=== PATIENT | female | born 1965 ===

== ENCOUNTER 2018-08-14 18:57 | Emergency (ER) | payer MEDICAID ==
[2018-08-14 18:58] VITALS: BMI 21.9
[2018-08-14 19:29] VITALS: RESP 18; TEMP 97.9
--- NOTE | 2018-08-14 20:38 | ED PDOC ---
Arrival/HPI - General Chief Complaint: Altered Mental Status Time Seen by Provider: 08/14/18 19:15 Historian: Patient - History of Present Illness Narrative History of Present Illness (Text): 08/14/18 20:36 53 year old female, with past medical history of chronic back pain, presents to the emergency department brought in by EMS after she was found alledgely wandering outside prior to arrival.States she was going to her pharmacy but lost her way. Patient informs she was coming from her psychiatrist's office tonight and states she currently feels fine. Patient states "I feel fine and nothing is wrong with me.She doesn't understand why she was brought to the ER but came willingly. Patient denies experiencing any alcohol abuse, suicidal ideation, homicidal ideation, fevers, chills, headache, dizziness, chest pain, shortness of breath, abdominal pain, nausea, vomiting, diarrhea, back pain, neck pain, urinary symptoms, or any other complaints. Time/Duration: Prior to Arrival Symptom Onset: Sudden Symptom Course: Unchanged Activities at Onset: Light Context: Walking Past Medical History - Provider Review Nursing Documentation Reviewed: Yes - Past History Past History: No Previous - Infectious Disease Hx of Infectious Diseases: None - Tetanus Immunization Tetanus Immunization: Unknown - Cardiac Hx Hypertension: Yes - Pulmonary Hx Asthma: Yes - Neurological Hx Neurological Disorder: No - HEENT Hx HEENT Disorder: No - Renal Hx Renal Disorder: No - Endocrine/Metabolic Hx Endocrine Disorders: No - Hematological/Oncological Hx Blood Disorders: No Hx Blood Transfusions: No Hx Blood Transfusion Reaction: No - Integumentary Hx Dermatological Disorder: No - Musculoskeletal/Rheumatological Other/Comment: Hx of Lupus erythematosis. - Gastrointestinal Hx Gastrointestinal Disorders: No - Genitourinary/Gynecological Hx Genitourinary Disorders: No - Psychiatric Hx Depression: Yes Hx Emotional Abuse: No Hx Physical Abuse: No Hx Substance Use: No - Surgical History Hx Orthopedic Surgery: Yes (JAW) - Anesthesia Hx Anesthesia: Yes Hx Anesthesia Reactions: No Hx Malignant Hyperthermia: No - Suicidal Assessment Feels Threatened In Home Enviroment: No Family/Social History - Physician Review Nursing Documentation Reviewed: Yes Family/Social History: Unknown Family HX Smoking Status: Light Smoker < 10 Cigarettes Daily Hx Alcohol Use: Yes ("a few beers about twice a week") Hx Substance Use: No Hx Substance Use Treatment: No Allergies/Home Meds Allergies/Adverse Reactions: Allergies No Known Allergies Allergy (Verified 01/31/13 09:31) Home Medications: Home Meds Medication Instructions Recorded Confirmed Betaine HCl/Folic Acid/Methy 1 cap PO DAILY 06/03/12 03/21/14 [B6-Folic Acid] Alprazolam [Xanax] 0.25 mg PO PRN PRN 01/12/14 03/21/14 Cyclobenzaprine HCl [Flexeril] 5 mg PO BID PRN 01/13/14 03/21/14 Meloxicam [Mobic] 7.5 mg PO DAILY 01/13/14 03/21/14 Review of Systems - Review of Systems Constitutional: absent: Fevers Respiratory: absent: SOB, Cough, Wheezing Cardiovascular: absent: Chest Pain Gastrointestinal: absent: Abdominal Pain, Diarrhea, Nausea, Vomiting Genitourinary Female: absent: Urine Output Changes Musculoskeletal: absent: Back Pain Skin: absent: Rash Neurological: absent: Headache, Dizziness Physical Exam Vital Signs Reviewed: Yes Vital Signs Temp Pulse Resp BP Pulse Ox 08/14/18 19:28 97.9 F 92 H 18 101/74 98 Temperature: Afebrile Blood Pressure: Normal Pulse: Regular Respiratory Rate: Normal Appearance: Positive for: Well-Appearing, Non-Toxic, Comfortable Pain Distress: None Mental Status: Positive for: Alert and Oriented X 3 - Systems Exam Head: Present: Atraumatic, Normocephalic Pupils: Present: PERRL Extroacular Muscles: Present: EOMI Conjunctiva: Present: Normal Mouth: Present: Moist Mucous Membranes Neck: Present: Normal Range of Motion Respiratory/Chest: Present: Clear to Auscultation, Good Air Exchange. No: Respiratory Distress, Accessory Muscle Use Cardiovascular: Present: Regular Rate and Rhythm, Normal S1, S2. No: Murmurs Abdomen: No: Tenderness, Distention, Peritoneal Signs Upper Extremity: Present: Normal Inspection. No: Cyanosis, Edema Lower Extremity: Present: Normal Inspection. No: Edema Neurological: Present: GCS=15, CN II-XII Intact, Speech Normal Skin: Present: Warm, Dry, Normal Color. No: Rashes Psychiatric: Present: Alert, Oriented x 3, Normal Insight, Normal Concentration Medical Decision Making ED Course and Treatment: 08/14/18 20:47 Impression: 53 year old female presents to the emergency department brought in by EMS following an episode of wandering prior to arrival. Plan: -- Reassess and disposition Progress Notes: 08/14/18 21:25 Patient seen and evaluated by ROX Vallejo, who discussed case with psychiatrist promotion specialist. Patient is psychiatrically stable for discharge with follow up at [facility]. Patient stable for discharge. 08/14/18 21:27 - Scribe Statement The provider has reviewed the documentation as recorded by the Scribe Maye spears with Terri All medical record entries made by the Scribe were at my direction and personally dictated by me. I have reviewed the chart and agree that the record accurately reflects my personal performance of the history, physical exam, medical decision making, and the department course for this patient. I have also personally directed, reviewed, and agree with the discharge instructions and disposition. Disposition/Present on Arrival - Present on Arrival Any Indicators Present on Arrival: No History of DVT/PE: No History of Uncontrolled Diabetes: No Urinary Catheter: No History of Decub. Ulcer: No History Surgical Site Infection Following: None - Disposition Have Diagnosis and Disposition been Completed?: Yes Diagnosis: Anxiety Disposition: HOME/ ROUTINE Disposition Time: 21:14 Patient Plan: Discharge Condition: GOOD Additional Instructions: Follow up with your doctor as needed. Referrals: Leonila Palacios DO [Primary Care Provider] - Follow up with primary Forms: [employer] ([place])
[2018-08-14 21:10] VITALS: BP 110/65; PULSE 85; O2SAT 100
== END 2018-08-14 21:00 | disposition home or self-care (01) ==
LOC: ED 18:57
DX: F41.9 Anxiety disorder, unspecified (principal); I10 Essential (primary) hypertension; M32.9 Systemic lupus erythematosus, unspecified; F17.210 Nicotine dependence, cigarettes, uncomplicated